=== PATIENT | male | born 1955 | race Caucasian/White ===

== ENCOUNTER 2019-04-22 13:07 | Inpatient (IN) ==
[~2019-04-22 13:07] MED LIST: Aminoglycoside Consult 1 EACH MC ONE
[2019-04-22] MEDS ORDERED: 0.9 % Sodium Chloride 1,000 ML IVC ONE (13:22)
[2019-04-22 13:44] LABS: Basophils # 0.1 K/mcL (0.0-0.2); Basophils % 0.4 %; Eosinophils # 0.1 K/mcL (0.0-0.6); Eosinophils % 0.7 %; Hematocrit 38.5 % (37.5-50.1); Hemoglobin 9.8 g/dL (12.9-16.9); Immature Granulocytes % 0.8 % (0-4); Lymphocytes # 2.6 K/mcL (0.6-4.6); Mean Corpuscular HGB Conc 25.5 g/dL (31.6-35.5); Mean Corpuscular Hemoglobin 24.1 pg (28.0-33.3); Mean Corpuscular Volume 94.8 fL (83.0-100.0); Mean Platelet Volume 12.1 fL (9.4-12.4); Monocytes # 1.1 K/mcL (0.0-1.3); Monocytes % 9.2 %; Neutrophils # 8.4 K/mcL (1.6-8.9); Nucleated Red Blood Cells 0.3 /100 WBC (0); Platelet Count 261 K/mcL (140-400); Red Blood Count 4.06 M/mcL (4.19-5.50); Red Cell Distribution Width 16.5 % (11.5-14.5); Segmented Neutrophils % 67.9 %; White Blood Count 12.3 K/mcL (4.3-11.1)
[2019-04-22 13:48] LABS: INR 1.2; Prothrombin Time 13.5 Seconds (9.4-12.1)
[2019-04-22 14:01] LABS: Calcium 8.9 mg/dL (8.6-10.3); Potassium 5.5 mEq/L (3.5-5.1); Troponin I 0.03 ng/mL (< 0.04)
[2019-04-22 14:18] LABS: Anisocytosis 1+ (Not Present); Hypochromasia Present (Not Present); Macrocytosis Present (Not Present); Microcytosis Present (Not Present); Polychromasia 1+ (Not Present)
[2019-04-22 14:19] LABS: Platelet Estimate Normal (Normal); Schistocytes 1+ (Not Present)
[2019-04-22] MEDS ORDERED: Naloxone 0.4 MG/ML INJ IVP PRN (16:33)
[2019-04-22] MEDS ORDERED: Perflutren Lipid Microsphere 1.3 ML in 0.9 % Sodium Chloride 8.7 ML IVP ONE (16:37)
[2019-04-22] MEDS ORDERED: D5% in Water 1,000 ML IVC PRN (16:50)
[2019-04-22] MEDS ORDERED: *HR* Dextrose 50 % in Water (Syg) 50 ML SYRINGE IVP PRN (16:50)
[2019-04-22] MEDS ORDERED: Dextrose Gel 15 GM/37.5 ML TUBE PO PRN ×2 (16:50)
[2019-04-22] MEDS ORDERED: *HR* Heparin 5,000 UNIT/ML VIAL IVP PRN ×2 (16:57)
[2019-04-22] MEDS ORDERED: *HR* Heparin 5,000 UNIT/ML VIAL IVP ONE (16:57)
[2019-04-22] MEDS ORDERED: 0.9 % Sodium Chloride 1,000 ML IVC SCH (17:00)
[2019-04-22] MEDS ORDERED: Artificial Tears SOLN 15 ML BOTTLE BOTH EYES PRN (17:14)
[2019-04-22] MEDS: FentaNYL (PF) 1,000 MCG in 0.9 % Sodium Chloride 80 ML IVC SCH (17:20)
[2019-04-22] MEDS: Heparin 25,000 UNIT/250 ML D5W 25,000 UNIT/250 ML IV.SOLN IVC SCH (17:24)
[2019-04-22 17:36] LABS: ABG Base Excess 10 mEq/L (-2 to 3); ABG HCO3 38 mEq/L (21-27); ABG Oxygen Saturation 97 % (95-98); ABG PCO2 74 mmHg (35-45); ABG PH 7.32 pH Units (7.32-7.45); ABG PO2 97 mmHg (85-104); ABG TCO2 40 mEq/L (20-26); Blood Gas Modality ASSIST CONTROL; Blood Gas VT 550 cc
[2019-04-22 18:04] LABS: Hematocrit 32.3 % (37.5-50.1); Hemoglobin 8.6 g/dL (12.9-16.9); Mean Corpuscular HGB Conc 26.6 g/dL (31.6-35.5); Mean Corpuscular Hemoglobin 24.1 pg (28.0-33.3); Mean Corpuscular Volume 90.5 fL (83.0-100.0); Mean Platelet Volume 11.3 fL (9.4-12.4); Platelet Count 229 K/mcL (140-400); Red Blood Count 3.57 M/mcL (4.19-5.50); Red Cell Distribution Width 16.6 % (11.5-14.5); White Blood Count 14.5 K/mcL (4.3-11.1)
[2019-04-22 18:08] LABS: Bilirubin,Urine Negative (Negative); Blood,Urine Negative (Negative); Clarity,Urine Cloudy (Clear); Color,Urine Yellow (Yellow); Glucose,Urine (UA) Normal (Normal); Ketones,Urine Negative (Negative); Leukocyte Esterase,Urine Negative (Negative); Nitrite,Urine Negative (Negative); Protein,Urine >=300 mg/dL (Neg-Trace); Specific Gravity,Urine 1.021 (1.010-1.025); Urobilinogen,Urine Normal (Normal)
[2019-04-22 18:12] LABS: Amphetamine Screen,Urine Negative ng/mL (Cutoff=1000); Barbiturate Screen,Urine Negative ng/mL (Cutoff=200); Benzodiazepines Screen,Urine Negative ng/mL (Cutoff=200); Cannabinoid Screen,Urine Negative ng/mL (Cutoff = 50); Cocaine Screen,Urine Negative ng/mL (Cutoff= 300); Opiate Screen,Urine Positive ng/mL (Cutoff=300); Phencyclidine Screen,Urine Negative ng/mL (Cutoff=25)
[2019-04-22 18:14] LABS: INR 1.3; Prothrombin Time 14.2 Seconds (9.4-12.1)
[2019-04-22 18:16] LABS: Heparin anti-factor XA UFH 0.02 IU/mL (0.30-0.70)
[2019-04-22 18:18] LABS: Magnesium 1.8 mg/dL (1.6-2.6); Phosphorous 3.9 mg/dL (2.7-4.5)
[2019-04-22 18:22] LABS: Albumin 3.3 g/dL (3.5-5.7); Albumin/Globulin Ratio 1.2 (1.1-2.2); Bilirubin,Direct 0.1 mg/dL (0.0-0.2); Bilirubin,Indirect 0.3 mg/dL (0.0-1.0); Bilirubin,Total 0.4 mg/dL (0.3-1.0); Globulin 2.7 g/dL (2.4-3.5)
[2019-04-22 19:03] LABS: WBC,Urine 0-3 per hpf (0-3)
[2019-04-22 19:24] LABS: Adenovirus Not Detected (Not Detect); Bordetella Pertussis Not Detected (Not Detect); Chlamydophila pneumoniae Not Detected (Not Detect); Coronavirus 229E Not Detected (Not Detect); Coronavirus HKU1 Not Detected (Not Detect); Coronavirus NL63 Not Detected (Not Detect); Coronavirus OC43 Not Detected (Not Detect); Human Metapneumovirus Not Detected (Not Detect); Human Rhinovirus/Enterovirus Not Detected (Not Detect); Influenza A Subtype 2009 H1 Not Detected (Not Detect); Influenza B Not Detected (Not Detect); Mycoplasma pneumoniae Not Detected (Not Detect); Parainfluenza Virus 1 Not Detected (Not Detect); Parainfluenza Virus 2 Not Detected (Not Detect); Parainfluenza Virus 3 Not Detected (Not Detect); Parainfluenza Virus 4 Not Detected (Not Detect); Respiratory Syncytial Virus Not Detected (Not Detect)
[2019-04-22] MEDS: Insulin LISPRO 300 UNITS/3 ML VIAL SQ SCH (19:25)
[2019-04-22] MEDS: Famotidine 20 MG/2 ML VIAL IVP SCH (19:25)
[2019-04-22] MEDS: Dexmedetomidine HCl 400 MCG/100 ML MLS IVC SCH (19:26)
[2019-04-22] MEDS: Acetaminophen 650 MG RECTAL SUPP RC SCH ×2 (19:26→23:37)
[2019-04-22] MEDS: Azithromycin 500 MG in 0.9 % Sodium Chloride 250 ML IVPB SCH (19:26)
[2019-04-22] MEDS: Chlorhexidine Rinse 15 ML MOUTHWASH MM SCH (20:40)
[2019-04-22] MEDS: Artificial Tears SOLN 15 ML BOTTLE BOTH EYES SCH (20:40)
[2019-04-22 20:58] LABS: Calcium 8.6 mg/dL (8.6-10.3); Potassium 5.7 mEq/L (3.5-5.1)
[2019-04-22 21:27] LABS: ABG Base Excess 9 mEq/L (-2 to 3); ABG HCO3 37 mEq/L (21-27); ABG Oxygen Saturation 99 % (95-98); ABG PCO2 66 mmHg (35-45); ABG PH 7.35 pH Units (7.32-7.45); ABG PO2 143 mmHg (85-104); ABG TCO2 39 mEq/L (20-26); Blood Gas Modality ASSIST CONTROL; Blood Gas VT 550 cc
[2019-04-22] MEDS: Piperacillin/Tazobactam 3.375 GM in 0.9 % Sodium Chloride Mini Bag 100 ML IVPB SCH (23:37)
[2019-04-23] MEDS: Artificial Tears SOLN 15 ML BOTTLE BOTH EYES SCH ×7 (00:02→23:12)
[2019-04-23] MEDS ORDERED: *HR* Meperidine 25 MG/ML SYRINGE IVP ONE (00:14)
[2019-04-23 00:24] LABS: Hematocrit 29.9 % (37.5-50.1); Hemoglobin 8.3 g/dL (12.9-16.9)
[2019-04-23] MEDS: FentaNYL (PF) 1,000 MCG in 0.9 % Sodium Chloride 80 ML IVC SCH ×2 (01:19→13:04)
[2019-04-23 03:28] LABS: Basophils % 0.1 %; Eosinophils % 0.4 %; Immature Granulocytes % 0.3 % (0-4); Monocytes % 5.8 %; Nucleated Red Blood Cells 0.2 /100 WBC (0)
[2019-04-23 03:30] LABS: Hemoglobin 8.4 g/dL (12.9-16.9); Immature Platelets 5.7 % (1.1-6.1); Lymphocytes # 0.9 K/mcL (0.6-4.6); Mean Corpuscular Hemoglobin 24.5 pg (28.0-33.3); Mean Corpuscular Volume 87.5 fL (83.0-100.0); Mean Platelet Volume 10.8 fL (9.4-12.4); Monocytes # 0.6 K/mcL (0.0-1.3); Neutrophils # 9.1 K/mcL (1.6-8.9); Platelet Count 220 K/mcL (140-400); Red Blood Count 3.43 M/mcL (4.19-5.50); Red Cell Distribution Width 16.7 % (11.5-14.5); Segmented Neutrophils % 85.4 %; White Blood Count 10.7 K/mcL (4.3-11.1)
[2019-04-23 03:49] LABS: Anisocytosis 1+ (Not Present); Hypochromasia Present (Not Present)
[2019-04-23 03:50] LABS: Large Platelets Present (Not Present); Microcytosis Present (Not Present); Platelet Estimate Normal (Normal)
[2019-04-23 03:51] LABS: Albumin/Globulin Ratio 1.1 (1.1-2.2); Bilirubin,Total 0.4 mg/dL (0.3-1.0); Calcium 8.7 mg/dL (8.6-10.3); Globulin 2.7 g/dL (2.4-3.5); Magnesium 1.5 mg/dL (1.6-2.6); Phosphorous 3.2 mg/dL (2.7-4.5); Potassium 5.7 mEq/L (3.5-5.1); Total Protein 5.7 g/dL (6.4-8.9)
[2019-04-23 04:22] LABS: Troponin I 0.22 ng/mL (< 0.04)
[2019-04-23 04:41] LABS: ABG Base Excess 10 mEq/L (-2 to 3); ABG HCO3 36 mEq/L (21-27); ABG Oxygen Saturation 98 % (95-98); ABG PCO2 54 mmHg (35-45); ABG PH 7.43 pH Units (7.32-7.45); ABG PO2 97 mmHg (85-104); ABG TCO2 38 mEq/L (20-26); Blood Gas Modality ASSIST CONTROL; Blood Gas VT 550 cc
[2019-04-23] MEDS: Dexmedetomidine HCl 400 MCG/100 ML MLS IVC SCH ×2 (05:25→10:50)
[2019-04-23] MEDS: Insulin LISPRO 300 UNITS/3 ML VIAL SQ SCH ×5 (06:02→23:07)
[2019-04-23] MEDS: Acetaminophen 650 MG RECTAL SUPP RC SCH ×4 (06:03→22:49)
[2019-04-23] MEDS: Famotidine 20 MG/2 ML VIAL IVP SCH ×2 (06:03→17:26)
[2019-04-23] MEDS: Heparin 25,000 UNIT/250 ML D5W 25,000 UNIT/250 ML IV.SOLN IVC SCH ×3 (07:26→23:13)
[2019-04-23 07:45] LABS: Sodium, Urine 50.6 mEq/L
[2019-04-23] MEDS: Piperacillin/Tazobactam 3.375 GM in 0.9 % Sodium Chloride Mini Bag 100 ML IVPB SCH ×3 (08:17→23:11)
[2019-04-23] MEDS: Chlorhexidine Rinse 15 ML MOUTHWASH MM SCH ×2 (08:17→20:06)
[2019-04-23 08:51] LABS: Uric Acid 8.9 mg/dL (2.3-7.6)
[2019-04-23] MEDS ORDERED: *HR* Atropine Sulfate 1 MG/10 ML SYRINGE IV ONE (10:44)
[2019-04-23] MEDS ORDERED: *HR* Norepinephrine 4 MG/4 ML VIAL IVC ONE ×2 (10:44→14:34)
[2019-04-23] MEDS ORDERED: D5% in Water 250 ML IV BAG IV ONE (10:44)
[2019-04-23] MEDS ORDERED: Albuterol 2.5 MG/3 ML NEBULIZER IH PRN (10:54)
[2019-04-23 11:01] LABS: Protein/Creatinine Ratio,Urine 0.96 mg/mg (0.00-0.20)
[2019-04-23] MEDS ORDERED: 0.9 % Sodium Chloride 500 ML ONE (11:14)
[2019-04-23 11:25] LABS: Hepatitis B Surface Antigen Nonreactive (Nonreactive)
[2019-04-23 11:53] LABS: Hepatitis C Virus Antibody Nonreactive (Nonreactive)
[2019-04-23 11:54] LABS: Hepatitis B Core IgM Nonreactive (Nonreactive)
[2019-04-23 11:55] LABS: Hepatitis A Antibody IgM Nonreactive (Nonreactive)
[2019-04-23] MEDS: SODIUM ZIRCONIUM CYCLOSILICATE 5 GM POWD.PACK PO SCH (13:09)
[2019-04-23] MEDS ORDERED: D5% in Water 250 ML ONE (14:35)
[2019-04-23 14:47] LABS: ABG Base Excess 8 mEq/L (-2 to 3); ABG HCO3 34 mEq/L (21-27); ABG Oxygen Saturation 99 % (95-98); ABG PCO2 53 mmHg (35-45); ABG PH 7.41 pH Units (7.32-7.45); ABG PO2 125 mmHg (85-104); ABG TCO2 35 mEq/L (20-26); Blood Gas Modality VC; Blood Gas VT 500 cc
[2019-04-23] MEDS ORDERED: *HR* Rocuronium Bromide 50 MG/5 ML VIAL IVP PRN (14:51)
[2019-04-23] MEDS: Norepinephrine 4 MG in 0.9 % Sodium Chloride 250 ML IVC SCH (14:59)
[2019-04-23] MEDS: Albumin 25% 25gram/100mL 25 GM/100 ML IV.SOLN IVPB SCH ×2 (15:06→23:13)
[2019-04-23] MEDS: Ipratropium/Albuterol Neb 3 ML IH SCH ×2 (16:19→22:14)
[2019-04-23 17:07] LABS: ABG Ionized Calcium 1.08 mmol/L (1.15-1.35)
[2019-04-23] MEDS: Azithromycin 500 MG in 0.9 % Sodium Chloride 250 ML IVPB SCH (17:26)
[2019-04-23 17:27] LABS: Calcium 8.8 mg/dL (8.6-10.3); Magnesium 1.8 mg/dL (1.6-2.6); Phosphorous 3.6 mg/dL (2.7-4.5); Potassium 5.7 mEq/L (3.5-5.1)
[2019-04-23] MEDS: Calcium Gluconate 1gm/50mL 1 GM/50 ML BAG IVPB PRN (17:47)
[2019-04-23 17:59] LABS: Immature Granulocytes % 0.4 % (0-4); Nucleated Red Blood Cells 0.2 /100 WBC (0)
[2019-04-23 18:00] LABS: Basophils % 0.2 %; Eosinophils # 0.3 K/mcL (0.0-0.6); Eosinophils % 2.3 %; Hematocrit 30.1 % (37.5-50.1); Hemoglobin 8.4 g/dL (12.9-16.9); Lymphocytes # 1.2 K/mcL (0.6-4.6); Lymphocytes % 9.5 %; Mean Corpuscular HGB Conc 27.9 g/dL (31.6-35.5); Mean Corpuscular Hemoglobin 24.3 pg (28.0-33.3); Mean Platelet Volume 11.5 fL (9.4-12.4); Monocytes # 0.9 K/mcL (0.0-1.3); Monocytes % 7.4 %; Neutrophils # 9.9 K/mcL (1.6-8.9); Platelet Count 246 K/mcL (140-400); Red Blood Count 3.46 M/mcL (4.19-5.50); Red Cell Distribution Width 17.2 % (11.5-14.5); Segmented Neutrophils % 80.2 %; White Blood Count 12.4 K/mcL (4.3-11.1)
[2019-04-23 18:36] LABS: Polychromasia 1+ (Not Present)
[2019-04-23 18:37] LABS: Hypochromasia Present (Not Present); Large Platelets Present (Not Present)
[2019-04-24] MEDS: Norepinephrine 4 MG in 0.9 % Sodium Chloride 250 ML IVC SCH ×3 (00:53→21:43)
[2019-04-24] MEDS: Artificial Tears SOLN 15 ML BOTTLE BOTH EYES SCH ×6 (03:16→23:06)
[2019-04-24] MEDS: Acetaminophen 650 MG RECTAL SUPP RC SCH ×4 (03:16→23:06)
[2019-04-24] MEDS: FentaNYL (PF) 1,000 MCG in 0.9 % Sodium Chloride 80 ML IVC SCH ×3 (03:16→23:18)
[2019-04-24] MEDS: Ipratropium/Albuterol Neb 3 ML IH SCH ×4 (03:52→21:15)
[2019-04-24 04:31] LABS: Red Cell Distribution Width 17.2 % (11.5-14.5)
[2019-04-24 04:33] LABS: Basophils % 0.3 %; Eosinophils # 0.2 K/mcL (0.0-0.6); Eosinophils % 1.3 %; Hematocrit 29.6 % (37.5-50.1); Hemoglobin 8.1 g/dL (12.9-16.9); Immature Granulocytes % 0.4 % (0-4); Lymphocytes # 0.6 K/mcL (0.6-4.6); Lymphocytes % 4.7 %; Mean Corpuscular HGB Conc 27.4 g/dL (31.6-35.5); Mean Corpuscular Hemoglobin 24.1 pg (28.0-33.3); Mean Corpuscular Volume 88.1 fL (83.0-100.0); Mean Platelet Volume 11.9 fL (9.4-12.4); Monocytes # 0.8 K/mcL (0.0-1.3); Monocytes % 5.8 %; Neutrophils # 11.9 K/mcL (1.6-8.9); Nucleated Red Blood Cells 0.3 /100 WBC (0); Platelet Count 260 K/mcL (140-400); Red Blood Count 3.36 M/mcL (4.19-5.50); Segmented Neutrophils % 87.5 %; White Blood Count 13.6 K/mcL (4.3-11.1)
[2019-04-24 04:48] LABS: Calcium 8.7 mg/dL (8.6-10.3); Potassium 6.1 mEq/L (3.5-5.1)
[2019-04-24 05:06] LABS: ABG Base Excess 5 mEq/L (-2 to 3); ABG HCO3 33 mEq/L (21-27); ABG Oxygen Saturation 92 % (95-98); ABG PCO2 66 mmHg (35-45); ABG PH 7.31 pH Units (7.32-7.45); ABG PO2 73 mmHg (85-104); ABG TCO2 35 mEq/L (20-26); Blood Gas Modality ASSIST CONTROL; Blood Gas VT 550 cc
[2019-04-24] MEDS: Famotidine 20 MG/2 ML VIAL IVP SCH ×2 (05:29→17:25)
[2019-04-24] MEDS: Insulin LISPRO 300 UNITS/3 ML VIAL SQ SCH ×4 (05:31→23:06)
[2019-04-24] MEDS: Piperacillin/Tazobactam 3.375 GM in 0.9 % Sodium Chloride Mini Bag 100 ML IVPB SCH ×3 (08:37→23:06)
[2019-04-24] MEDS: Chlorhexidine Rinse 15 ML MOUTHWASH MM SCH ×2 (08:38→20:55)
[2019-04-24] MEDS: Albumin 25% 25gram/100mL 25 GM/100 ML IV.SOLN IVPB SCH (08:38)
[2019-04-24] MEDS: SODIUM ZIRCONIUM CYCLOSILICATE 5 GM POWD.PACK PO SCH (08:39)
[2019-04-24] MEDS ORDERED: SODIUM ZIRCONIUM CYCLOSILICATE 5 GM POWD.PACK PO SCH (09:23)
[2019-04-24] MEDS: Dexmedetomidine HCl 400 MCG/100 ML MLS IVC SCH (09:57)
[2019-04-24 10:56] LABS: INR 1.2
[2019-04-24] MEDS ORDERED: Calcium Gluconate 1gm/50mL 1 GM/50 ML BAG IVPB PRN (12:37)
[2019-04-24] MEDS ORDERED: *HR* Heparin 5,000 UNIT/ML VIAL CRRT PRN (12:37)
[2019-04-24] MEDS ORDERED: 0.9 % Sodium Chloride 1,000 ML PRIME SCH (12:45)
[2019-04-24] MEDS: *HR* Heparin 5,000 UNIT/ML VIAL SQ SCH ×2 (14:04→20:56)
[2019-04-24 14:33] LABS: VBG Ionized Calcium 1.07 mmol/L (1.15-1.35)
[2019-04-24 14:53] LABS: Calcium 8.7 mg/dL (8.6-10.3); Potassium 5.8 mEq/L (3.5-5.1)
[2019-04-24] MEDS: PrismaSATE BGK 4/2.5 5,000 ML CRRT SCH ×6 (15:22→21:45)
[2019-04-24] MEDS: Calcium Chloride 4,000 MG in 0.9 % Sodium Chloride 1,000 ML CRRT SCH (15:23)
[2019-04-24] MEDS: Azithromycin 500 MG in 0.9 % Sodium Chloride 250 ML IVPB SCH (17:25)
[2019-04-24 18:05] LABS: VBG Ionized Calcium 1.09 mmol/L (1.15-1.35)
[2019-04-24 23:12] LABS: VBG Ionized Calcium 1.12 mmol/L (1.15-1.35)
[2019-04-25] MEDS: PrismaSATE BGK 4/2.5 5,000 ML CRRT SCH ×16 (01:08→21:32)
[2019-04-25] MEDS: Dexmedetomidine HCl 400 MCG/100 ML MLS IVC SCH ×2 (02:05→15:50)
[2019-04-25] MEDS: Ipratropium/Albuterol Neb 3 ML IH SCH ×4 (03:08→21:11)
[2019-04-25] MEDS: Artificial Tears SOLN 15 ML BOTTLE BOTH EYES SCH ×6 (03:21→23:09)
[2019-04-25 03:28] LABS: ABG Ionized Calcium 1.13 mmol/L (1.15-1.35)
[2019-04-25 03:31] LABS: Hematocrit 30.7 % (37.5-50.1); Hemoglobin 8.4 g/dL (12.9-16.9); Lymphocytes # 1.4 K/mcL (0.6-4.6); Mean Corpuscular HGB Conc 27.4 g/dL (31.6-35.5); Mean Corpuscular Hemoglobin 24.2 pg (28.0-33.3); Mean Corpuscular Volume 88.5 fL (83.0-100.0); Mean Platelet Volume 11.7 fL (9.4-12.4); Nucleated Red Blood Cells 0.6 /100 WBC (0); Platelet Count 257 K/mcL (140-400); Red Blood Count 3.47 M/mcL (4.19-5.50); Red Cell Distribution Width 17.5 % (11.5-14.5); White Blood Count 9.8 K/mcL (4.3-11.1)
[2019-04-25 03:46] LABS: Calcium 8.9 mg/dL (8.6-10.3); Potassium 5.3 mEq/L (3.5-5.1)
[2019-04-25 04:36] LABS: ABG Base Excess 1 mEq/L (-2 to 3); ABG HCO3 32 mEq/L (21-27); ABG Oxygen Saturation 82 % (95-98); ABG PCO2 85 mmHg (35-45); ABG PH 7.18 pH Units (7.32-7.45); ABG PO2 61 mmHg (85-104); ABG TCO2 34 mEq/L (20-26); Blood Gas Modality VC; Blood Gas VT 500 cc
[2019-04-25] MEDS: Norepinephrine 4 MG in 0.9 % Sodium Chloride 250 ML IVC SCH ×3 (04:40→21:07)
[2019-04-25] MEDS: Insulin LISPRO 300 UNITS/3 ML VIAL SQ SCH ×4 (05:03→23:12)
[2019-04-25] MEDS: *HR* Heparin 5,000 UNIT/ML VIAL SQ SCH ×3 (05:03→20:17)
[2019-04-25] MEDS: Acetaminophen 650 MG RECTAL SUPP RC SCH ×2 (05:04→07:36)
[2019-04-25] MEDS: Famotidine 20 MG/2 ML VIAL IVP SCH (05:04)
[2019-04-25 05:19] LABS: Eosinophils # 0.4 K/mcL (0.0-0.6); Hypochromasia Present (Not Present); Monocytes # 0.6 K/mcL (0.0-1.3); Neutrophils # 7.5 K/mcL (1.6-8.9)
[2019-04-25 05:20] LABS: Platelet Estimate Normal (Normal)
[2019-04-25] MEDS: Piperacillin/Tazobactam 3.375 GM in 0.9 % Sodium Chloride Mini Bag 100 ML IVPB SCH ×3 (08:20→23:09)
[2019-04-25] MEDS: Chlorhexidine Rinse 15 ML MOUTHWASH MM SCH ×2 (08:20→20:17)
[2019-04-25 08:58] LABS: VBG Ionized Calcium 1.13 mmol/L (1.15-1.35)
[2019-04-25 09:07] LABS: ABG Base Excess 1 mEq/L (-2 to 3); ABG HCO3 31 mEq/L (21-27); ABG Oxygen Saturation 90 % (95-98); ABG PCO2 88 mmHg (35-45); ABG PH 7.16 pH Units (7.32-7.45); ABG PO2 77 mmHg (85-104); ABG TCO2 34 mEq/L (20-26); Blood Gas Modality ASSIST CONTROL; Blood Gas VT 580 cc
[2019-04-25] MEDS: FentaNYL (PF) 1,000 MCG in 0.9 % Sodium Chloride 80 ML IVC SCH ×2 (09:29→19:37)
[2019-04-25 11:28] LABS: ABG Base Excess 0 mEq/L (-2 to 3); ABG HCO3 29 mEq/L (21-27); ABG Oxygen Saturation 91 % (95-98); ABG PCO2 72 mmHg (35-45); ABG PH 7.22 pH Units (7.32-7.45); ABG PO2 76 mmHg (85-104); ABG TCO2 32 mEq/L (20-26); Blood Gas Modality ASSIST CONTROL; Blood Gas VT 600 cc
[2019-04-25] MEDS: Calcium Chloride 4,000 MG in 0.9 % Sodium Chloride 1,000 ML CRRT SCH (13:00)
[2019-04-25 14:39] LABS: VBG Ionized Calcium 1.15 mmol/L (1.15-1.35)
[2019-04-25] MEDS: Azithromycin 500 MG in 0.9 % Sodium Chloride 250 ML IVPB SCH (17:38)
[2019-04-25 20:00] LABS: VBG Ionized Calcium 1.14 mmol/L (1.15-1.35)
[2019-04-26] MEDS: PrismaSATE BGK 4/2.5 5,000 ML CRRT SCH ×16 (00:21→21:50)
[2019-04-26 02:22] LABS: VBG Ionized Calcium 1.15 mmol/L (1.15-1.35)
[2019-04-26] MEDS: Ipratropium/Albuterol Neb 3 ML IH SCH ×4 (03:16→21:04)
[2019-04-26] MEDS: Dexmedetomidine HCl 400 MCG/100 ML MLS IVC SCH ×4 (03:18→22:17)
[2019-04-26] MEDS: Artificial Tears SOLN 15 ML BOTTLE BOTH EYES SCH ×6 (03:18→23:23)
[2019-04-26 03:47] LABS: Basophils % 0.3 %; Eosinophils # 0.3 K/mcL (0.0-0.6); Eosinophils % 3.5 %; Hematocrit 28.5 % (37.5-50.1); Hemoglobin 7.7 g/dL (12.9-16.9); Immature Granulocytes % 0.4 % (0-4); Lymphocytes # 0.9 K/mcL (0.6-4.6); Lymphocytes % 11.8 %; Mean Corpuscular Hemoglobin 24.2 pg (28.0-33.3); Mean Corpuscular Volume 89.6 fL (83.0-100.0); Mean Platelet Volume 11.9 fL (9.4-12.4); Monocytes # 0.7 K/mcL (0.0-1.3); Monocytes % 9.2 %; Nucleated Red Blood Cells 0.8 /100 WBC (0); Platelet Count 174 K/mcL (140-400); Red Blood Count 3.18 M/mcL (4.19-5.50); Red Cell Distribution Width 17.6 % (11.5-14.5); Segmented Neutrophils % 74.8 %; White Blood Count 7.7 K/mcL (4.3-11.1)
[2019-04-26 03:50] LABS: ABG Base Excess 3 mEq/L (-2 to 3); ABG HCO3 31 mEq/L (21-27); ABG Oxygen Saturation 94 % (95-98); ABG PCO2 68 mmHg (35-45); ABG PH 7.27 pH Units (7.32-7.45); ABG PO2 85 mmHg (85-104); ABG TCO2 33 mEq/L (20-26); Blood Gas Modality ASSIST CONTROL; Blood Gas VT 600 cc
[2019-04-26 03:59] LABS: Neutrophils # 5.8 K/mcL (1.6-8.9)
[2019-04-26] MEDS: *HR* Heparin 5,000 UNIT/ML VIAL SQ SCH ×3 (05:04→21:08)
[2019-04-26 05:08] LABS: Anisocytosis 1+ (Not Present); Microcytosis Present (Not Present); Ovalocytes 1+ (Not Present)
[2019-04-26 05:09] LABS: Hypochromasia Present (Not Present); Platelet Estimate Normal (Normal)
[2019-04-26] MEDS: FentaNYL (PF) 1,000 MCG in 0.9 % Sodium Chloride 80 ML IVC SCH ×2 (05:12→16:40)
[2019-04-26] MEDS: Norepinephrine 4 MG in 0.9 % Sodium Chloride 250 ML IVC SCH ×2 (06:00→13:49)
[2019-04-26] MEDS: Insulin LISPRO 300 UNITS/3 ML VIAL SQ SCH ×4 (06:15→23:28)
[2019-04-26] MEDS: Chlorhexidine Rinse 15 ML MOUTHWASH MM SCH ×2 (08:31→20:11)
[2019-04-26] MEDS: Piperacillin/Tazobactam 3.375 GM in 0.9 % Sodium Chloride Mini Bag 100 ML IVPB SCH ×3 (08:31→23:21)
[2019-04-26] MEDS: Famotidine 20 MG/2 ML VIAL IVP SCH (08:31)
[2019-04-26 08:52] LABS: VBG Ionized Calcium 1.19 mmol/L (1.15-1.35)
[2019-04-26 09:24] LABS: Calcium 8.8 mg/dL (8.6-10.3)
[2019-04-26] MEDS: Calcium Chloride 4,000 MG in 0.9 % Sodium Chloride 1,000 ML CRRT SCH (10:20)
[2019-04-26] MEDS ORDERED: Perflutren Lipid Microsphere 1.3 ML in 0.9 % Sodium Chloride 8.7 ML IVP ONE (12:11)
[2019-04-26 14:36] LABS: VBG Ionized Calcium 1.19 mmol/L (1.15-1.35)
[2019-04-26] MEDS: Azithromycin 500 MG in 0.9 % Sodium Chloride 250 ML IVPB SCH (17:46)
[2019-04-26] MEDS: Sennosides/Docusate Sodium TABLET PO SCH (20:11)
[2019-04-26 20:17] LABS: VBG Ionized Calcium 1.16 mmol/L (1.15-1.35)
[2019-04-27] MEDS: FentaNYL (PF) 1,000 MCG in 0.9 % Sodium Chloride 80 ML IVC SCH ×3 (00:04→20:43)
[2019-04-27] MEDS: PrismaSATE BGK 4/2.5 5,000 ML CRRT SCH ×12 (00:49→20:10)
[2019-04-27 02:22] LABS: VBG Ionized Calcium 1.17 mmol/L (1.15-1.35)
[2019-04-27] MEDS: Ipratropium/Albuterol Neb 3 ML IH SCH ×4 (03:29→21:43)
[2019-04-27 03:38] LABS: Nucleated Red Blood Cells 0.7 /100 WBC (0)
[2019-04-27] MEDS: Artificial Tears SOLN 15 ML BOTTLE BOTH EYES SCH ×6 (03:39→23:43)
[2019-04-27 03:40] LABS: Basophils % 0.3 %; Eosinophils # 0.2 K/mcL (0.0-0.6); Eosinophils % 2.3 %; Hematocrit 27.6 % (37.5-50.1); Hemoglobin 7.4 g/dL (12.9-16.9); Immature Granulocytes % 0.2 % (0-4); Lymphocytes # 0.7 K/mcL (0.6-4.6); Lymphocytes % 7.3 %; Mean Corpuscular HGB Conc 26.8 g/dL (31.6-35.5); Mean Corpuscular Hemoglobin 23.8 pg (28.0-33.3); Mean Corpuscular Volume 88.7 fL (83.0-100.0); Mean Platelet Volume 11.5 fL (9.4-12.4); Monocytes # 0.7 K/mcL (0.0-1.3); Monocytes % 7.4 %; Neutrophils # 7.6 K/mcL (1.6-8.9); Platelet Count 187 K/mcL (140-400); Red Blood Count 3.11 M/mcL (4.19-5.50); Red Cell Distribution Width 17.5 % (11.5-14.5); Segmented Neutrophils % 82.5 %; White Blood Count 9.2 K/mcL (4.3-11.1)
[2019-04-27 03:59] LABS: BUN/Creatinine Ratio 8 (6-26); Blood Urea Nitrogen 10 mg/dL (8-23); Calcium 8.7 mg/dL (8.6-10.3); Carbon Dioxide 27 mEq/L (23-29); Chloride 105 mEq/L (98-107); Glucose 107 mg/dL (70-105); Osmolality,Calculated 282 (280-300); Potassium 4.6 mEq/L (3.5-5.1); Sodium 136 mEq/L (136-145); eGFR For African Americans > 60 (> 60); eGFR For Non-African Americans 57 (> 60)
[2019-04-27 04:37] LABS: Hypochromasia Present (Not Present)
[2019-04-27] MEDS ORDERED: *HR* Heparin 5,000 UNIT/ML VIAL ONE (04:37)
[2019-04-27 04:38] LABS: Anisocytosis 1+ (Not Present); Microcytosis Present (Not Present); Platelet Estimate Normal (Normal); Polychromasia 1+ (Not Present)
[2019-04-27 04:39] LABS: ABG Base Excess 2 mEq/L (-2 to 3); ABG HCO3 29 mEq/L (21-27); ABG Oxygen Saturation 91 % (95-98); ABG PCO2 63 mmHg (35-45); ABG PH 7.28 pH Units (7.32-7.45); ABG PO2 72 mmHg (85-104); ABG TCO2 31 mEq/L (20-26); Blood Gas Modality ASSIST CONTROL; Blood Gas VT 600 cc
[2019-04-27] MEDS: Norepinephrine 4 MG in 0.9 % Sodium Chloride 250 ML IVC SCH ×2 (05:41→14:18)
[2019-04-27] MEDS: *HR* Heparin 5,000 UNIT/ML VIAL SQ SCH ×3 (05:42→22:10)
[2019-04-27] MEDS: Insulin LISPRO 300 UNITS/3 ML VIAL SQ SCH ×4 (06:09→23:42)
[2019-04-27] MEDS: Calcium Chloride 4,000 MG in 0.9 % Sodium Chloride 1,000 ML CRRT SCH (06:10)
[2019-04-27] MEDS: Dexmedetomidine HCl 400 MCG/100 ML MLS IVC SCH (07:29)
[2019-04-27] MEDS: Piperacillin/Tazobactam 3.375 GM in 0.9 % Sodium Chloride Mini Bag 100 ML IVPB SCH ×3 (07:38→23:42)
[2019-04-27] MEDS: Chlorhexidine Rinse 15 ML MOUTHWASH MM SCH ×2 (07:41→20:10)
[2019-04-27] MEDS: Sennosides/Docusate Sodium TABLET PO SCH ×2 (07:59→20:10)
[2019-04-27] MEDS: Famotidine 20 MG/2 ML VIAL IVP SCH ×2 (07:59→20:10)
[2019-04-27 08:29] LABS: Phosphorous 2.6 mg/dL (2.7-4.5)
[2019-04-27 08:39] LABS: VBG Ionized Calcium 1.14 mmol/L (1.15-1.35)
[2019-04-27] MEDS: Metoclopramide 10 MG/2 ML VIAL IVP SCH ×3 (11:54→23:42)
[2019-04-27 15:15] LABS: VBG Ionized Calcium 1.12 mmol/L (1.15-1.35)
[2019-04-27 20:15] LABS: ABG Ionized Calcium 1.12 mmol/L (1.15-1.35)
[2019-04-28] MEDS: PrismaSATE BGK 4/2.5 5,000 ML CRRT SCH ×12 (00:24→21:30)
[2019-04-28 02:00] LABS: ABG Ionized Calcium 1.12 mmol/L (1.15-1.35)
[2019-04-28] MEDS: Calcium Chloride 4,000 MG in 0.9 % Sodium Chloride 1,000 ML CRRT SCH ×2 (02:51→18:01)
[2019-04-28] MEDS: Norepinephrine 4 MG in 0.9 % Sodium Chloride 250 ML IVC SCH (02:52)
[2019-04-28] MEDS: Ipratropium/Albuterol Neb 3 ML IH SCH ×4 (03:14→21:28)
[2019-04-28 04:02] LABS: Mean Platelet Volume 11.1 fL (9.4-12.4)
[2019-04-28] MEDS: Artificial Tears SOLN 15 ML BOTTLE BOTH EYES SCH ×6 (04:03→23:16)
[2019-04-28 04:04] LABS: Basophils % 0.1 %; Eosinophils # 0.2 K/mcL (0.0-0.6); Hematocrit 29.9 % (37.5-50.1); Hemoglobin 8.2 g/dL (12.9-16.9); Immature Granulocytes % 0.6 % (0-4); Lymphocytes # 0.7 K/mcL (0.6-4.6); Lymphocytes % 7.9 %; Mean Corpuscular HGB Conc 27.4 g/dL (31.6-35.5); Mean Corpuscular Hemoglobin 23.6 pg (28.0-33.3); Mean Corpuscular Volume 85.9 fL (83.0-100.0); Monocytes % 10.9 %; Neutrophils # 6.8 K/mcL (1.6-8.9); Nucleated Red Blood Cells 0.3 /100 WBC (0); Platelet Count 197 K/mcL (140-400); Red Blood Count 3.48 M/mcL (4.19-5.50); Red Cell Distribution Width 19.4 % (11.5-14.5); Segmented Neutrophils % 78.5 %; White Blood Count 8.7 K/mcL (4.3-11.1)
[2019-04-28 04:21] LABS: Calcium 8.7 mg/dL (8.6-10.3); Potassium 4.8 mEq/L (3.5-5.1)
[2019-04-28 04:48] LABS: Anisocytosis 1+ (Not Present); Hypochromasia Present (Not Present)
[2019-04-28 04:49] LABS: Platelet Estimate Normal (Normal)
[2019-04-28 04:50] LABS: ABG Base Excess -1 mEq/L (-2 to 3); ABG HCO3 28 mEq/L (21-27); ABG Oxygen Saturation 96 % (95-98); ABG PCO2 70 mmHg (35-45); ABG PH 7.22 pH Units (7.32-7.45); ABG PO2 103 mmHg (85-104); ABG TCO2 30 mEq/L (20-26); Blood Gas Modality ASSIST CONTROL; Blood Gas VT 600 cc
[2019-04-28] MEDS: Metoclopramide 10 MG/2 ML VIAL IVP SCH ×4 (04:54→23:16)
[2019-04-28] MEDS: *HR* Heparin 5,000 UNIT/ML VIAL SQ SCH ×3 (04:54→21:05)
[2019-04-28] MEDS: Insulin LISPRO 300 UNITS/3 ML VIAL SQ SCH ×4 (05:54→23:44)
[2019-04-28] MEDS ORDERED: Albumin 25% 25gram/100mL 25 GM/100 ML IV.SOLN IVPB ONE (07:46)
[2019-04-28] MEDS: Chlorhexidine Rinse 15 ML MOUTHWASH MM SCH ×2 (08:03→20:05)
[2019-04-28] MEDS: Piperacillin/Tazobactam 3.375 GM in 0.9 % Sodium Chloride Mini Bag 100 ML IVPB SCH ×3 (08:03→23:15)
[2019-04-28] MEDS: Famotidine 20 MG/2 ML VIAL IVP SCH ×2 (08:03→20:06)
[2019-04-28] MEDS: Sennosides/Docusate Sodium TABLET PO SCH ×2 (08:03→20:06)
[2019-04-28 08:25] LABS: ABG Ionized Calcium 0.98 mmol/L (1.15-1.35)
[2019-04-28 08:40] LABS: Thyroid Stimulating Hormone 1.245 mcIU/mL (0.340-5.600)
[2019-04-28] MEDS: Calcium Gluconate 1gm/50mL 1 GM/50 ML BAG IVPB PRN ×3 (08:41→20:05)
[2019-04-28 10:17] LABS: VBG Ionized Calcium 1.04 mmol/L (1.15-1.35)
[2019-04-28] MEDS: Hydrocortisone Sodium Succ 100 MG/2 ML VIAL IVP SCH ×3 (11:24→23:16)
[2019-04-28 12:02] LABS: VBG Ionized Calcium 1.02 mmol/L (1.15-1.35)
[2019-04-28] MEDS: FentaNYL (PF) 1,000 MCG in 0.9 % Sodium Chloride 80 ML IVC SCH ×2 (12:47→20:34)
[2019-04-28 14:09] LABS: VBG Ionized Calcium 1.05 mmol/L (1.15-1.35)
[2019-04-28 16:33] LABS: VBG Ionized Calcium 1.03 mmol/L (1.15-1.35)
[2019-04-28 19:59] LABS: VBG Ionized Calcium 0.86 mmol/L (1.15-1.35)
[2019-04-28 23:21] LABS: VBG Ionized Calcium 1.03 mmol/L (1.15-1.35)
[2019-04-29] MEDS: PrismaSATE BGK 4/2.5 5,000 ML CRRT SCH ×12 (01:04→21:41)
[2019-04-29 01:11] LABS: VBG Ionized Calcium 1.11 mmol/L (1.15-1.35)
[2019-04-29] MEDS: Calcium Chloride 4,000 MG in 0.9 % Sodium Chloride 1,000 ML CRRT SCH ×3 (02:27→19:59)
[2019-04-29] MEDS: Ipratropium/Albuterol Neb 3 ML IH SCH ×4 (03:09→21:41)
[2019-04-29] MEDS: Artificial Tears SOLN 15 ML BOTTLE BOTH EYES SCH ×6 (03:17→23:16)
[2019-04-29] MEDS: Dexmedetomidine HCl 400 MCG/100 ML MLS IVC SCH ×4 (03:18→20:45)
[2019-04-29 03:28] LABS: Basophils % 0.2 %; Eosinophils % 0.2 %
[2019-04-29 03:30] LABS: Hematocrit 29.1 % (37.5-50.1); Hemoglobin 8.1 g/dL (12.9-16.9); Immature Granulocytes % 1.1 % (0-4); Lymphocytes # 0.3 K/mcL (0.6-4.6); Lymphocytes % 3.9 %; Mean Corpuscular HGB Conc 27.8 g/dL (31.6-35.5); Mean Corpuscular Hemoglobin 23.8 pg (28.0-33.3); Mean Corpuscular Volume 85.3 fL (83.0-100.0); Mean Platelet Volume 11.2 fL (9.4-12.4); Monocytes # 0.4 K/mcL (0.0-1.3); Monocytes % 5.4 %; Neutrophils # 5.8 K/mcL (1.6-8.9); Nucleated Red Blood Cells 0.5 /100 WBC (0); Platelet Count 184 K/mcL (140-400); Red Blood Count 3.41 M/mcL (4.19-5.50); Red Cell Distribution Width 18.8 % (11.5-14.5); Segmented Neutrophils % 89.2 %; White Blood Count 6.5 K/mcL (4.3-11.1)
[2019-04-29 03:30] LABS: VBG Ionized Calcium 1.15 mmol/L (1.15-1.35)
[2019-04-29 03:44] LABS: Albumin 3.3 g/dL (3.5-5.7); Albumin/Globulin Ratio 1.1 (1.1-2.2); BUN/Creatinine Ratio 7 (6-26); Bilirubin,Direct 0.3 mg/dL (0.0-0.2); Bilirubin,Indirect 0.2 mg/dL (0.0-1.0); Bilirubin,Total 0.5 mg/dL (0.3-1.0); Blood Urea Nitrogen 9 mg/dL (8-23); Carbon Dioxide 26 mEq/L (23-29); Chloride 102 mEq/L (98-107); Globulin 2.9 g/dL (2.4-3.5); Glucose 117 mg/dL (70-105); Potassium 4.7 mEq/L (3.5-5.1); Sodium 136 mEq/L (136-145); Total Protein 6.2 g/dL (6.4-8.9); eGFR For African Americans > 60 (> 60); eGFR For Non-African Americans 53 (> 60)
[2019-04-29 03:45] LABS: Calcium 9.3 mg/dL (8.6-10.3); Osmolality,Calculated 282 (280-300)
[2019-04-29 03:53] LABS: ABG Base Excess 2 mEq/L (-2 to 3); ABG HCO3 30 mEq/L (21-27); ABG Oxygen Saturation 92 % (95-98); ABG PCO2 65 mmHg (35-45); ABG PH 7.27 pH Units (7.32-7.45); ABG PO2 74 mmHg (85-104); ABG TCO2 32 mEq/L (20-26); Blood Gas Modality ASSIST CONTROL; Blood Gas VT 600 cc
[2019-04-29] MEDS: FentaNYL (PF) 1,000 MCG in 0.9 % Sodium Chloride 80 ML IVC SCH ×3 (04:17→20:26)
[2019-04-29] MEDS: Hydrocortisone Sodium Succ 100 MG/2 ML VIAL IVP SCH ×4 (05:05→23:15)
[2019-04-29] MEDS: *HR* Heparin 5,000 UNIT/ML VIAL SQ SCH ×3 (05:05→20:46)
[2019-04-29] MEDS: Metoclopramide 10 MG/2 ML VIAL IVP SCH ×4 (05:05→23:15)
[2019-04-29 05:14] LABS: Hypochromasia Present (Not Present); Platelet Estimate Normal (Normal)
[2019-04-29] MEDS: Insulin LISPRO 300 UNITS/3 ML VIAL SQ SCH ×4 (05:45→23:23)
[2019-04-29] MEDS: Famotidine 20 MG/2 ML VIAL IVP SCH ×2 (08:36→20:20)
[2019-04-29] MEDS: Chlorhexidine Rinse 15 ML MOUTHWASH MM SCH ×2 (08:36→20:15)
[2019-04-29] MEDS: Sennosides/Docusate Sodium TABLET PO SCH ×2 (08:36→20:15)
[2019-04-29 09:14] LABS: VBG Ionized Calcium 1.37 mmol/L (1.15-1.35)
[2019-04-29 12:05] LABS: VBG Ionized Calcium 1.34 mmol/L (1.15-1.35)
[2019-04-29] MEDS: Norepinephrine 4 MG in 0.9 % Sodium Chloride 250 ML IVC SCH (13:20)
[2019-04-29 14:07] LABS: VBG Ionized Calcium 1.36 mmol/L (1.15-1.35)
[2019-04-29 17:29] LABS: VBG Ionized Calcium 1.22 mmol/L (1.15-1.35)
[2019-04-29 17:54] LABS: ABG Base Excess 3 mEq/L (-2 to 3); ABG HCO3 31 mEq/L (21-27); ABG Oxygen Saturation 92 % (95-98); ABG PCO2 62 mmHg (35-45); ABG PO2 73 mmHg (85-104); ABG TCO2 33 mEq/L (20-26); Blood Gas Modality AF; Blood Gas VT 530 cc
[2019-04-29 23:25] LABS: VBG Ionized Calcium 1.38 mmol/L (1.15-1.35)
[2019-04-30] MEDS ORDERED: *HR* Heparin 5,000 UNIT/ML VIAL ONE (00:29)
[2019-04-30 01:40] LABS: VBG Ionized Calcium 1.46 mmol/L (1.15-1.35)
[2019-04-30] MEDS: FentaNYL (PF) 1,000 MCG in 0.9 % Sodium Chloride 80 ML IVC SCH ×4 (03:02→23:15)
[2019-04-30] MEDS: Artificial Tears SOLN 15 ML BOTTLE BOTH EYES SCH ×6 (03:03→23:18)
[2019-04-30] MEDS: Ipratropium/Albuterol Neb 3 ML IH SCH ×4 (03:42→21:40)
[2019-04-30 04:08] LABS: Eosinophils % 0.3 %; Immature Granulocytes % 0.5 % (0-4)
[2019-04-30 04:09] LABS: Basophils % 0.4 %; Hematocrit 26.5 % (37.5-50.1); Hemoglobin 7.4 g/dL (12.9-16.9); Lymphocytes # 0.4 K/mcL (0.6-4.6); Lymphocytes % 4.9 %; Mean Corpuscular HGB Conc 27.9 g/dL (31.6-35.5); Mean Corpuscular Hemoglobin 23.4 pg (28.0-33.3); Mean Corpuscular Volume 83.9 fL (83.0-100.0); Mean Platelet Volume 10.3 fL (9.4-12.4); Monocytes # 0.7 K/mcL (0.0-1.3); Monocytes % 8.4 %; Neutrophils # 6.7 K/mcL (1.6-8.9); Nucleated Red Blood Cells 0.4 /100 WBC (0); Platelet Count 209 K/mcL (140-400); Red Blood Count 3.16 M/mcL (4.19-5.50); Red Cell Distribution Width 18.4 % (11.5-14.5); Segmented Neutrophils % 85.5 %; White Blood Count 7.8 K/mcL (4.3-11.1)
[2019-04-30 04:21] LABS: Calcium 10.3 mg/dL (8.6-10.3); Potassium 4.4 mEq/L (3.5-5.1)
[2019-04-30 04:48] LABS: ABG Base Excess 2 mEq/L (-2 to 3); ABG HCO3 30 mEq/L (21-27); ABG Oxygen Saturation 91 % (95-98); ABG PCO2 62 mmHg (35-45); ABG PH 7.29 pH Units (7.32-7.45); ABG PO2 71 mmHg (85-104); ABG TCO2 31 mEq/L (20-26); Blood Gas Modality ASSIST CONTROL; Blood Gas VT 530 cc
[2019-04-30 04:59] LABS: Hypochromasia Present (Not Present); Platelet Estimate Normal (Normal)
[2019-04-30] MEDS: Hydrocortisone Sodium Succ 100 MG/2 ML VIAL IVP SCH ×4 (05:27→23:18)
[2019-04-30] MEDS: Metoclopramide 10 MG/2 ML VIAL IVP SCH ×4 (05:27→23:18)
[2019-04-30] MEDS: *HR* Heparin 5,000 UNIT/ML VIAL SQ SCH ×3 (05:28→22:09)
[2019-04-30] MEDS: Insulin LISPRO 300 UNITS/3 ML VIAL SQ SCH ×4 (05:28→23:20)
[2019-04-30 06:05] LABS: VBG Ionized Calcium 1.43 mmol/L (1.15-1.35)
[2019-04-30] MEDS: PrismaSATE BGK 4/2.5 5,000 ML CRRT SCH ×10 (06:29→23:04)
[2019-04-30] MEDS: Calcium Chloride 4,000 MG in 0.9 % Sodium Chloride 1,000 ML CRRT SCH ×2 (06:30→20:40)
[2019-04-30] MEDS: Famotidine 20 MG/2 ML VIAL IVP SCH ×2 (07:25→20:06)
[2019-04-30] MEDS: Sennosides/Docusate Sodium TABLET PO SCH ×2 (07:31→20:06)
[2019-04-30] MEDS: Chlorhexidine Rinse 15 ML MOUTHWASH MM SCH ×2 (07:31→20:06)
[2019-04-30] MEDS: Dexmedetomidine HCl 400 MCG/100 ML MLS IVC SCH ×3 (07:55→20:40)
[2019-04-30 08:05] LABS: VBG Ionized Calcium 1.35 mmol/L (1.15-1.35)
[2019-04-30 10:47] LABS: VBG Ionized Calcium 1.15 mmol/L (1.15-1.35)
[2019-04-30 16:22] LABS: VBG Ionized Calcium 1.17 mmol/L (1.15-1.35)
[2019-04-30 22:27] LABS: VBG Ionized Calcium 1.31 mmol/L (1.15-1.35)
[2019-05-01] MEDS ORDERED: *HR* Heparin 5,000 UNIT/ML VIAL ONE (00:43)
[2019-05-01] MEDS: Dexmedetomidine HCl 400 MCG/100 ML MLS IVC SCH ×6 (01:41→23:26)
[2019-05-01] MEDS: Ipratropium/Albuterol Neb 3 ML IH SCH ×4 (03:44→21:35)
[2019-05-01 04:14] LABS: VBG Ionized Calcium 1.29 mmol/L (1.15-1.35)
[2019-05-01 04:17] LABS: Basophils % 0.2 %; Monocytes % 8.6 %; Red Cell Distribution Width 18.5 % (11.5-14.5)
[2019-05-01 04:19] LABS: Eosinophils # 0.2 K/mcL (0.0-0.6); Eosinophils % 1.7 %; Hematocrit 28.4 % (37.5-50.1); Lymphocytes # 0.4 K/mcL (0.6-4.6); Mean Corpuscular HGB Conc 28.2 g/dL (31.6-35.5); Mean Corpuscular Hemoglobin 23.5 pg (28.0-33.3); Mean Corpuscular Volume 83.3 fL (83.0-100.0); Mean Platelet Volume 10.7 fL (9.4-12.4); Monocytes # 0.7 K/mcL (0.0-1.3); Neutrophils # 7.2 K/mcL (1.6-8.9); Nucleated Red Blood Cells 0.5 /100 WBC (0); Platelet Count 248 K/mcL (140-400); Red Blood Count 3.41 M/mcL (4.19-5.50); Segmented Neutrophils % 83.5 %; White Blood Count 8.6 K/mcL (4.3-11.1)
[2019-05-01] MEDS: PrismaSATE BGK 4/2.5 5,000 ML CRRT SCH ×10 (04:36→21:11)
[2019-05-01 04:37] LABS: Calcium 9.8 mg/dL (8.6-10.3); Potassium 4.6 mEq/L (3.5-5.1)
[2019-05-01] MEDS: Artificial Tears SOLN 15 ML BOTTLE BOTH EYES SCH ×6 (04:39→23:05)
[2019-05-01 04:48] LABS: Anisocytosis 1+ (Not Present); Hypochromasia Present (Not Present); Microcytosis Present (Not Present); Platelet Estimate Normal (Normal)
[2019-05-01] MEDS: Metoclopramide 10 MG/2 ML VIAL IVP SCH ×4 (05:07→23:06)
[2019-05-01] MEDS: *HR* Heparin 5,000 UNIT/ML VIAL SQ SCH ×3 (05:07→22:18)
[2019-05-01] MEDS: Hydrocortisone Sodium Succ 100 MG/2 ML VIAL IVP SCH ×5 (05:07→23:06)
[2019-05-01] MEDS: Insulin LISPRO 300 UNITS/3 ML VIAL SQ SCH ×4 (05:09→23:05)
[2019-05-01 05:12] LABS: ABG Base Excess 4 mEq/L (-2 to 3); ABG HCO3 31 mEq/L (21-27); ABG Oxygen Saturation 97 % (95-98); ABG PCO2 62 mmHg (35-45); ABG PH 7.31 pH Units (7.32-7.45); ABG PO2 103 mmHg (85-104); ABG TCO2 33 mEq/L (20-26); Blood Gas Modality ASSIST CONTROL; Blood Gas VT 530 cc
[2019-05-01] MEDS: FentaNYL (PF) 1,000 MCG in 0.9 % Sodium Chloride 80 ML IVC SCH ×3 (07:02→20:28)
[2019-05-01] MEDS: Famotidine 20 MG/2 ML VIAL IVP SCH ×2 (07:34→20:03)
[2019-05-01] MEDS: Chlorhexidine Rinse 15 ML MOUTHWASH MM SCH ×2 (07:34→20:03)
[2019-05-01] MEDS: Sennosides/Docusate Sodium TABLET PO SCH ×2 (07:34→20:03)
[2019-05-01 09:58] LABS: VBG Ionized Calcium 1.13 mmol/L (1.15-1.35); VBG PH 7.23 pH Units (7.32-7.42)
[2019-05-01] MEDS: Calcium Chloride 4,000 MG in 0.9 % Sodium Chloride 1,000 ML CRRT SCH (10:45)
[2019-05-01] MEDS: Norepinephrine 4 MG in 0.9 % Sodium Chloride 250 ML IVC SCH (15:10)
[2019-05-01 16:24] LABS: VBG Ionized Calcium 1.17 mmol/L (1.15-1.35)
[2019-05-01 22:18] LABS: VBG Ionized Calcium 1.33 mmol/L (1.15-1.35)
[2019-05-02 00:12] LABS: VBG Ionized Calcium 1.34 mmol/L (1.15-1.35)
[2019-05-02] MEDS: PrismaSATE BGK 4/2.5 5,000 ML CRRT SCH ×12 (00:38→21:30)
[2019-05-02] MEDS: Calcium Chloride 4,000 MG in 0.9 % Sodium Chloride 1,000 ML CRRT SCH ×2 (00:45→16:15)
[2019-05-02 02:17] LABS: VBG Ionized Calcium 1.28 mmol/L (1.15-1.35)
[2019-05-02] MEDS: Artificial Tears SOLN 15 ML BOTTLE BOTH EYES SCH ×6 (03:04→22:56)
[2019-05-02] MEDS: FentaNYL (PF) 1,000 MCG in 0.9 % Sodium Chloride 80 ML IVC SCH ×3 (03:16→19:14)
[2019-05-02] MEDS: Dexmedetomidine HCl 400 MCG/100 ML MLS IVC SCH ×6 (03:27→23:14)
[2019-05-02] MEDS: Ipratropium/Albuterol Neb 3 ML IH SCH ×4 (03:33→21:50)
[2019-05-02 03:39] LABS: Basophils % 0.4 %; Eosinophils # 0.3 K/mcL (0.0-0.6); Eosinophils % 3.6 %; Hematocrit 27.4 % (37.5-50.1); Hemoglobin 7.5 g/dL (12.9-16.9); Immature Granulocytes % 0.2 % (0-4); Immature Platelets 6.7 % (1.1-6.1); Lymphocytes # 0.4 K/mcL (0.6-4.6); Mean Corpuscular HGB Conc 27.4 g/dL (31.6-35.5); Mean Corpuscular Hemoglobin 24.2 pg (28.0-33.3); Mean Corpuscular Volume 88.4 fL (83.0-100.0); Mean Platelet Volume 11.3 fL (9.4-12.4); Monocytes # 0.6 K/mcL (0.0-1.3); Monocytes % 6.9 %; Neutrophils # 7.2 K/mcL (1.6-8.9); Platelet Count 241 K/mcL (140-400); Red Cell Distribution Width 18.7 % (11.5-14.5); Segmented Neutrophils % 83.9 %; White Blood Count 8.6 K/mcL (4.3-11.1)
[2019-05-02 03:59] LABS: Calcium 9.3 mg/dL (8.6-10.3); Potassium 4.2 mEq/L (3.5-5.1)
[2019-05-02 04:42] LABS: Anisocytosis 2+ (Not Present); Hypochromasia Present (Not Present); Microcytosis Present (Not Present); Polychromasia 1+ (Not Present)
[2019-05-02 04:43] LABS: Poikilocytosis 1+ (Not Present)
[2019-05-02 04:52] LABS: ABG Base Excess 4 mEq/L (-2 to 3); ABG HCO3 31 mEq/L (21-27); ABG Oxygen Saturation 93 % (95-98); ABG PCO2 62 mmHg (35-45); ABG PO2 76 mmHg (85-104); ABG TCO2 33 mEq/L (20-26); Blood Gas Modality AF; Blood Gas VT 530 cc
[2019-05-02] MEDS: *HR* Heparin 5,000 UNIT/ML VIAL SQ SCH ×3 (05:14→21:30)
[2019-05-02] MEDS: Metoclopramide 10 MG/2 ML VIAL IVP SCH ×4 (05:14→22:56)
[2019-05-02] MEDS: Hydrocortisone Sodium Succ 100 MG/2 ML VIAL IVP SCH ×4 (05:14→22:56)
[2019-05-02] MEDS: Insulin LISPRO 300 UNITS/3 ML VIAL SQ SCH ×4 (05:22→22:58)
[2019-05-02] MEDS: Famotidine 20 MG/2 ML VIAL IVP SCH ×2 (07:30→20:08)
[2019-05-02] MEDS: Chlorhexidine Rinse 15 ML MOUTHWASH MM SCH ×2 (07:32→20:08)
[2019-05-02] MEDS: Sennosides/Docusate Sodium TABLET PO SCH ×2 (07:38→20:09)
[2019-05-02 08:20] LABS: VBG Ionized Calcium 1.11 mmol/L (1.15-1.35)
[2019-05-02 08:42] LABS: Magnesium 2.1 mg/dL (1.6-2.6); Phosphorous 2.3 mg/dL (2.7-4.5)
[2019-05-02 10:23] LABS: VBG Ionized Calcium 1.17 mmol/L (1.15-1.35)
[2019-05-02] MEDS ORDERED: 0.9 % Sodium Chloride 1,000 ML ONE ×2 (10:23→17:58)
[2019-05-02] MEDS: Norepinephrine 4 MG in 0.9 % Sodium Chloride 250 ML IVC SCH (14:14)
[2019-05-02 16:03] LABS: VBG Ionized Calcium 1.03 mmol/L (1.15-1.35)
[2019-05-02 18:25] LABS: VBG Ionized Calcium 1.15 mmol/L (1.15-1.35)
[2019-05-03 00:24] LABS: VBG Ionized Calcium 1.24 mmol/L (1.15-1.35)
[2019-05-03] MEDS: PrismaSATE BGK 4/2.5 5,000 ML CRRT SCH ×8 (01:37→14:08)
[2019-05-03] MEDS: FentaNYL (PF) 1,000 MCG in 0.9 % Sodium Chloride 80 ML IVC SCH ×3 (02:15→17:24)
[2019-05-03] MEDS: Dexmedetomidine HCl 400 MCG/100 ML MLS IVC SCH ×6 (03:01→23:42)
[2019-05-03] MEDS: Ipratropium/Albuterol Neb 3 ML IH SCH ×4 (04:14→21:32)
[2019-05-03] MEDS: Artificial Tears SOLN 15 ML BOTTLE BOTH EYES SCH ×6 (04:15→23:42)
[2019-05-03 04:24] LABS: ABG Base Excess 5 mEq/L (-2 to 3); ABG HCO3 32 mEq/L (21-27); ABG Oxygen Saturation 92 % (95-98); ABG PCO2 60 mmHg (35-45); ABG PH 7.34 pH Units (7.32-7.45); ABG PO2 70 mmHg (85-104); ABG TCO2 34 mEq/L (20-26); Blood Gas Modality ASSIST CONTROL; Blood Gas VT 530 cc
[2019-05-03 04:48] LABS: Basophils % 0.2 %
[2019-05-03 04:49] LABS: Eosinophils # 0.4 K/mcL (0.0-0.6); Eosinophils % 4.6 %; Hematocrit 27.4 % (37.5-50.1); Hemoglobin 7.6 g/dL (12.9-16.9); Immature Granulocytes % 0.6 % (0-4); Lymphocytes # 0.7 K/mcL (0.6-4.6); Lymphocytes % 8.5 %; Mean Corpuscular HGB Conc 27.7 g/dL (31.6-35.5); Mean Corpuscular Hemoglobin 23.5 pg (28.0-33.3); Mean Corpuscular Volume 84.6 fL (83.0-100.0); Mean Platelet Volume 11.1 fL (9.4-12.4); Monocytes # 0.6 K/mcL (0.0-1.3); Monocytes % 7.5 %; Neutrophils # 6.4 K/mcL (1.6-8.9); Platelet Count 251 K/mcL (140-400); Red Blood Count 3.24 M/mcL (4.19-5.50); Red Cell Distribution Width 18.7 % (11.5-14.5); Segmented Neutrophils % 78.6 %; White Blood Count 8.1 K/mcL (4.3-11.1)
[2019-05-03] MEDS: Calcium Chloride 4,000 MG in 0.9 % Sodium Chloride 1,000 ML CRRT SCH (05:07)
[2019-05-03] MEDS: Hydrocortisone Sodium Succ 100 MG/2 ML VIAL IVP SCH ×4 (05:08→23:42)
[2019-05-03] MEDS: *HR* Heparin 5,000 UNIT/ML VIAL SQ SCH ×3 (05:08→22:17)
[2019-05-03 05:12] LABS: Calcium 9.2 mg/dL (8.6-10.3)
[2019-05-03 06:25] LABS: VBG Ionized Calcium 1.23 mmol/L (1.15-1.35)
[2019-05-03 06:28] LABS: Hypochromasia Present (Not Present)
[2019-05-03 06:29] LABS: Platelet Estimate Normal (Normal)
[2019-05-03] MEDS: Insulin LISPRO 300 UNITS/3 ML VIAL SQ SCH ×4 (06:41→23:43)
[2019-05-03] MEDS: Metoclopramide 10 MG/2 ML VIAL IVP SCH ×4 (06:42→23:44)
[2019-05-03] MEDS: Famotidine 20 MG/2 ML VIAL IVP SCH ×2 (07:22→19:43)
[2019-05-03] MEDS: Sennosides/Docusate Sodium TABLET PO SCH ×2 (07:23→19:44)
[2019-05-03] MEDS: Chlorhexidine Rinse 15 ML MOUTHWASH MM SCH ×2 (07:29→19:43)
[2019-05-03] MEDS ORDERED: *HR* Heparin 5,000 UNIT/ML VIAL ONE (14:20)
[2019-05-03] MEDS: Norepinephrine 4 MG in 0.9 % Sodium Chloride 250 ML IVC SCH (15:10)
[2019-05-03] MEDS ORDERED: Bisacodyl 10 MG RECTAL SUPPOSITORY RC PRN (17:02)
[2019-05-04] MEDS: FentaNYL (PF) 1,000 MCG in 0.9 % Sodium Chloride 80 ML IVC SCH ×2 (00:27→09:35)
[2019-05-04] MEDS: Ipratropium/Albuterol Neb 3 ML IH SCH ×4 (03:32→22:15)
[2019-05-04 03:35] LABS: Red Cell Distribution Width 18.8 % (11.5-14.5)
[2019-05-04 03:37] LABS: Basophils % 0.2 %; Eosinophils # 0.3 K/mcL (0.0-0.6); Eosinophils % 3.5 %; Hematocrit 25.6 % (37.5-50.1); Hemoglobin 7.2 g/dL (12.9-16.9); Immature Granulocytes % 0.4 % (0-4); Lymphocytes # 0.6 K/mcL (0.6-4.6); Lymphocytes % 6.1 %; Mean Corpuscular HGB Conc 28.1 g/dL (31.6-35.5); Mean Corpuscular Hemoglobin 24.2 pg (28.0-33.3); Mean Corpuscular Volume 86.2 fL (83.0-100.0); Mean Platelet Volume 10.4 fL (9.4-12.4); Monocytes # 0.7 K/mcL (0.0-1.3); Monocytes % 7.1 %; Platelet Count 236 K/mcL (140-400); Red Blood Count 2.97 M/mcL (4.19-5.50); Segmented Neutrophils % 82.7 %; White Blood Count 9.6 K/mcL (4.3-11.1)
[2019-05-04] MEDS: Dexmedetomidine HCl 400 MCG/100 ML MLS IVC SCH ×2 (03:37→07:54)
[2019-05-04] MEDS: Artificial Tears SOLN 15 ML BOTTLE BOTH EYES SCH ×5 (03:37→18:55)
[2019-05-04 03:38] LABS: Neutrophils # 7.9 K/mcL (1.6-8.9)
[2019-05-04 03:39] LABS: VBG Ionized Calcium 1.25 mmol/L (1.15-1.35)
[2019-05-04 03:56] LABS: Calcium 8.9 mg/dL (8.6-10.3); Potassium 4.3 mEq/L (3.5-5.1)
[2019-05-04 04:03] LABS: Anisocytosis 1+ (Not Present); Hypochromasia Present (Not Present); Large Platelets Present (Not Present); Microcytosis Present (Not Present); Platelet Estimate Normal (Normal); Poikilocytosis 1+ (Not Present); Polychromasia 1+ (Not Present); Target Cells 1+ (Not Present)
[2019-05-04 04:59] LABS: ABG Base Excess 5 mEq/L (-2 to 3); ABG HCO3 30 mEq/L (21-27); ABG Oxygen Saturation 93 % (95-98); ABG PCO2 50 mmHg (35-45); ABG PH 7.39 pH Units (7.32-7.45); ABG PO2 67 mmHg (85-104); ABG TCO2 32 mEq/L (20-26); Blood Gas Modality ASSIST CONTROL; Blood Gas VT 530 cc
[2019-05-04] MEDS: Insulin LISPRO 300 UNITS/3 ML VIAL SQ SCH ×3 (05:18→17:52)
[2019-05-04] MEDS: Hydrocortisone Sodium Succ 100 MG/2 ML VIAL IVP SCH ×4 (05:18→23:59)
[2019-05-04] MEDS: Metoclopramide 10 MG/2 ML VIAL IVP SCH ×3 (05:18→17:52)
[2019-05-04] MEDS: *HR* Heparin 5,000 UNIT/ML VIAL SQ SCH ×3 (05:19→22:16)
[2019-05-04] MEDS: Famotidine 20 MG/2 ML VIAL IVP SCH ×2 (07:42→19:10)
[2019-05-04] MEDS: Sennosides/Docusate Sodium TABLET PO SCH ×2 (07:42→18:55)
[2019-05-04] MEDS: Chlorhexidine Rinse 15 ML MOUTHWASH MM SCH ×2 (07:42→18:55)
[2019-05-04] MEDS: Norepinephrine 4 MG in 0.9 % Sodium Chloride 250 ML IVC SCH (14:43)
[2019-05-04] MEDS ORDERED: *HR* LORazepam 2 MG/ML VIAL IVP PRN (17:18)
[2019-05-05] MEDS: Metoclopramide 10 MG/2 ML VIAL IVP SCH ×2 (00:01→06:16)
[2019-05-05] MEDS: Ipratropium/Albuterol Neb 3 ML IH SCH (04:14)
[2019-05-05 04:43] LABS: Eosinophils % 0.2 %; Hemoglobin 7.7 g/dL (12.9-16.9)
[2019-05-05 04:45] LABS: Basophils % 0.2 %; Hematocrit 27.3 % (37.5-50.1); Lymphocytes # 0.6 K/mcL (0.6-4.6); Lymphocytes % 5.2 %; Mean Corpuscular HGB Conc 28.2 g/dL (31.6-35.5); Mean Corpuscular Hemoglobin 24.3 pg (28.0-33.3); Mean Corpuscular Volume 86.1 fL (83.0-100.0); Mean Platelet Volume 10.8 fL (9.4-12.4); Monocytes # 0.7 K/mcL (0.0-1.3); Monocytes % 5.7 %; Neutrophils # 10.5 K/mcL (1.6-8.9); Platelet Count 290 K/mcL (140-400); Red Blood Count 3.17 M/mcL (4.19-5.50); Red Cell Distribution Width 18.7 % (11.5-14.5); Segmented Neutrophils % 87.7 %
[2019-05-05 04:55] LABS: VBG Ionized Calcium 1.22 mmol/L (1.15-1.35)
[2019-05-05] MEDS: Artificial Tears SOLN 15 ML BOTTLE BOTH EYES SCH ×3 (05:08→08:00)
[2019-05-05 05:22] LABS: Calcium 9.7 mg/dL (8.6-10.3); Potassium 4.6 mEq/L (3.5-5.1)
[2019-05-05 05:53] LABS: Anisocytosis 1+ (Not Present); Hypochromasia Present (Not Present); Platelet Estimate Normal (Normal); Poikilocytosis 1+ (Not Present)
[2019-05-05 05:54] LABS: Polychromasia 1+ (Not Present)
[2019-05-05 06:08] VITALS: BP 106/94
[2019-05-05] MEDS: Insulin LISPRO 300 UNITS/3 ML VIAL SQ SCH ×2 (06:15)
[2019-05-05] MEDS: Famotidine 20 MG/2 ML VIAL IVP SCH (06:18)
[2019-05-05] MEDS: Hydrocortisone Sodium Succ 100 MG/2 ML VIAL IVP SCH (06:18)
[2019-05-05] MEDS: *HR* Heparin 5,000 UNIT/ML VIAL SQ SCH (06:18)
[2019-05-05] MEDS: Sennosides/Docusate Sodium TABLET PO SCH (08:00)
[2019-05-05] MEDS: Chlorhexidine Rinse 15 ML MOUTHWASH MM SCH (08:00)
[2019-05-05] MEDS ORDERED: Ipratropium/Albuterol Neb 3 ML IH PRN ×2 (08:52→09:13)
[2019-05-05] MEDS ORDERED: Hydrocortisone Sodium Succ 100 MG/2 ML VIAL IVP SCH ×2 (09:00→21:00)
[2019-05-05] MEDS ORDERED: Naloxone 0.4 MG/ML INJ IVP PRN (09:13)
[2019-05-05] MEDS ORDERED: *HR* LORazepam 2 MG/ML VIAL IVP PRN (09:13)
[2019-05-05] MEDS ORDERED: D5% in Water 1,000 ML IVC PRN (09:13)
[2019-05-05] MEDS ORDERED: Artificial Tears SOLN 15 ML BOTTLE BOTH EYES PRN (09:13)
[2019-05-05] MEDS ORDERED: Dextrose Gel 15 GM/37.5 ML TUBE PO PRN ×2 (09:13)
[2019-05-05] MEDS ORDERED: Bisacodyl 10 MG RECTAL SUPPOSITORY RC PRN (09:13)
[2019-05-05] MEDS ORDERED: *HR* Dextrose 50 % in Water (Syg) 50 ML SYRINGE IVP PRN (09:13)
[2019-05-05] MEDS ORDERED: Insulin LISPRO 300 UNITS/3 ML VIAL SQ SCH (12:00)
[2019-05-05] MEDS ORDERED: *HR* Heparin 5,000 UNIT/ML VIAL SQ SCH (14:00)
[2019-05-05] MEDS ORDERED: Sennosides/Docusate Sodium TABLET PO SCH (21:00)
== END 2019-05-05 15:35 | disposition hospice, inpatient (51) | DRG 870 ==
LOC: EMEROOARM 13:07 → ICNU 15:40
PROVIDERS: ADMIT Pediatrics; ATTEND Pediatrics